=== PATIENT | male | born 1970 | race Caucasian/White ===

== ENCOUNTER 2017-12-12 07:35 | Emergency (ER) | payer BC ==
[~2017-12-12] VITALS: Ht 175.3 cm; Wt 100.7 kg
[~2017-12-12 07:35] MED LIST: NAPROSYN500 MG PO; NIACIN ER1000 MG PO; NOHOMEMEDS; OMEGA-3 ACID ETH1 GM PO; ULTRAM50 MG PO
[2017-12-12 08:05] LABS: HEMATOCRIT 38.4 % (38.0-50.0); HEMOGLOBIN 13.8 G/DL (12.5-16.6); MCH 32.2 PG (29.0-34.0); MCHC 35.9 G/DL (30.0-36.0); MCV 89.7 FL (86-99); PLATELET COUNT 177 K/uL (156-360); RBC DIS.WIDTH-SD 39.2 % (39-53); RED BLOOD COUNT 4.28 M/uL (4.00-5.50); WHITE BLOOD COUNT 5.9 K/uL (4.1-10.2)
[2017-12-12 08:53] LABS: CHLORIDE 105 MEQ/L (99-109); CREATININE 1.3 MG/DL (0.6-1.3); GFR ESTIMATE (CALCULATED) > 59 mL/min/ (58.99-99999); GLUCOSE 95 mg/dL (70-99); POTASSIUM 4.2 MEQ/L (3.7-5.4); SODIUM 137 MEQ/L (136-147); UREA NITROGEN (BUN) 24 mg/dL (9-23)
[2017-12-12 09:07] LABS: APPEARANCE CLEAR ((CLEAR)); BILIRUBIN NEGATIVE; BLOOD NEGATIVE; COLOR YELLOW ((YELLOW)); GLUCOSE (STRIP) NEGATIVE; KETONES NEGATIVE; LEUKOCYTES NEGATIVE; NITRITE NEGATIVE; PROTEIN (STRIP) NEGATIVE; SPECIFIC GRAVITY 1.025 (1.000-1.030); UCUL ADDED? NO; UROBILINOGEN 0.2 MG/DL (0.2-1.0)
[2017-12-12] MEDS ORDERED: MOTRIN800 MG PO (09:17)
[2017-12-12] MEDS ORDERED: LIDODERM 5% P1 PATCH TD (09:17)
[2017-12-12] MEDS ORDERED: BACLOFEN10 MG PO (09:17)
[2017-12-12 10:12] VITALS: BP 141/99
== END 2017-12-12 10:13 | disposition home or self-care (01) ==
LOC: EME 07:35
PROVIDERS: Nurse Practitioner Family
DX: M25.551 Pain in right hip (principal); E78.5 Hyperlipidemia, unspecified; I10 Essential (primary) hypertension; Z88.0 Allergy status to penicillin
CPT/HCPCS: 73502; 80048; 81003; 85027; 99281; 99284; J1885

== ENCOUNTER 2017-12-27 17:31 | Inpatient (IN) | payer BC ==
[~2017-12-27] VITALS: Ht 177.8 cm; Wt 99.3 kg
[~2017-12-27 17:31] MED LIST changes: +BACLOFEN10 MG PO; +LIDODERM 5% P1 PATCH TD; +MOTRIN800 MG PO
[2017-12-27 18:41] LABS: HEMATOCRIT 40.2 % (38.0-50.0); HEMOGLOBIN 14.2 G/DL (12.5-16.6); MCH 31.5 PG (29.0-34.0); MCHC 35.3 G/DL (30.0-36.0); MCV 89.1 FL (86-99); PLATELET COUNT 198 K/uL (156-360); RBC DIS.WIDTH-CV 11.9 % (11.8-14.6); RBC DIS.WIDTH-SD 38.5 % (39-53); RED BLOOD COUNT 4.51 M/uL (4.00-5.50); WHITE BLOOD COUNT 5.9 K/uL (4.1-10.2)
[2017-12-27 18:45] LABS: APPEARANCE CLEAR ((CLEAR)); BILIRUBIN NEGATIVE; BLOOD NEGATIVE; COLOR YELLOW ((YELLOW)); GLUCOSE (STRIP) NEGATIVE; KETONES NEGATIVE; LEUKOCYTES NEGATIVE; NITRITE NEGATIVE; PROTEIN (STRIP) NEGATIVE; SPECIFIC GRAVITY 1.019 (1.000-1.030); UCUL ADDED? NO; UROBILINOGEN 0.2 MG/DL (0.2-1.0)
[2017-12-27 18:56] LABS: ALBUMIN 4.7 g/dL (3.2-4.8); CHLORIDE 104 mEq/L (99-109); POTASSIUM 4.3 mEq/L (3.7-5.4); SODIUM 139 mEq/L (136-147)
[2017-12-27 18:58] LABS: GLUCOSE 90 mg/dL (70-99)
[2017-12-27 18:59] LABS: TOTAL PROTEIN 7.9 g/dL (6.4-8.3)
[2017-12-27 19:00] LABS: TOTAL BILIRUBIN 0.8 mg/dL (0.0-1.0)
[2017-12-27 19:02] LABS: ALKALINE PHOSPHATASE 65 IU/L (3-129); CREATININE 1.3 mg/dL (0.6-1.3); GFR ESTIMATE (CALCULATED) > 59 mL/min/ (58.99-99999)
[2017-12-27 19:03] LABS: UREA NITROGEN (BUN) 23 mg/dL (9-23)
[2017-12-27 19:04] LABS: AST (GOT) 13 IU/L (2-34)
[2017-12-27 19:05] LABS: ALT (GPT) 23 IU/L (3-49); LIPASE 829 U/L (1.0-51.0)
[2017-12-27] MEDS ORDERED: KRILL OIL500 MG PO (23:11)
[2017-12-27] MEDS ORDERED: LOSARTAN POTASS25 MG PO (23:12)
[2017-12-27] MEDS ORDERED: CLARITIN,ALAVAR10 MG PO (23:12)
[2017-12-28 03:54] VITALS: BP 142/100
[2017-12-28 05:20] LABS: ALBUMIN 4.1 G/DL (3.2-4.8); ALKALINE PHOSPHATASE 48 IU/L (3-129); ALT (GPT) 19 IU/L (3-49); AST (GOT) 13 IU/L (2-34); CHLORIDE 104 MEQ/L (99-109); CREATININE 1.3 MG/DL (0.6-1.3); DIRECT BILIRUBIN 0.1 mg/dL (0.0-0.3); GFR ESTIMATE (CALCULATED) > 59 mL/min/ (58.99-99999); GLUCOSE 94 mg/dL (70-99); HDL CHOLESTEROL 25 MG/DL (Desirable>=40); NON-HDL CHOLESTEROL 171 mg/dL (Desirable<160); POTASSIUM 4.3 MEQ/L (3.7-5.4); SODIUM 139 MEQ/L (136-147); TOTAL BILIRUBIN 0.7 MG/DL (0.0-1.0); TOTAL CHOLESTEROL 196 mg/dL (Desirable<200); TOTAL PROTEIN 6.5 G/DL (6.4-8.3); TRIGLYCERIDES 584 MG/DL (Normal: <150); UREA NITROGEN (BUN) 22 mg/dL (9-23)
[2017-12-28 08:15] VITALS: BP 123/85
[2017-12-28 11:49] VITALS: BP 132/90
== END 2017-12-28 13:15 | disposition home or self-care (01) | DRG 392 ==
LOC: EME 17:31 → EDOF 12-28 01:16 → ENRESERV 12-28 01:17 → 2EAST 12-28 03:45 → CANRESERV 12-28 13:43
PROVIDERS: Hospitalist; Physician Assistant
DX: R10.9 Unspecified abdominal pain (principal); E78.1 Pure hyperglyceridemia; N20.0 Calculus of kidney; K76.0 Fatty (change of) liver, not elsewhere classified; I10 Essential (primary) hypertension; N50.819 Testicular pain, unspecified; Z86.718 Personal history of other venous thrombosis and embolism; Z88.0 Allergy status to penicillin; Z88.8 Allergy status to other drugs, medicaments and biological substances; Z87.442 Personal history of urinary calculi
CPT/HCPCS: 72131; 74176; 80048; 80053; 80061; 80076; 81003; 83690; 85027; 99281; 99285; J1885; J3010; J7030